=== PATIENT | female | born 1970 | race American Indian/Alaskan Native ===

== ENCOUNTER 2016-07-18 08:11 | Outpatient (CLI) | payer BC ==
--- NOTE | 2016-07-18 14:20 | Mammography Report ---
BILATERAL DIGITAL SCREENING MAMMOGRAM with CAD: 07/18/16 08:11:00 CLINICAL: Routine screening. COMPARISON:None available. FINDINGS: The breasts are almost entirely fatty. No mass, architectural distortion or suspicious calcifications. IMPRESSION: No mammographic evidence of malignancy. BI-RADS CATEGORY: 1 - - Negative RECOMMENDATION: Routine mammographic screening in one year. COMMENT: Patient follow-up letters are generated by our [employer] application.
== END 2016-07-18 08:12 | disposition home or self-care (01) ==
LOC: MAMMO 08:11
PROVIDERS: ATTEND Internal Medicine
DX: Z12.31 Encounter for screening mammogram for malignant neoplasm of breast (principal)
CPT/HCPCS: 77067; G0202

== ENCOUNTER 2017-12-10 01:39 | Emergency (ER) | payer BC ==
[2017-12-10 05:27] LABS: Basophils # (Auto) 0.1 K/mm3 (0.0-0.1); Basophils % (Auto) 0.7 % (0.0-1.8); Hematocrit 41.9 % (30.3-42.9); Hemoglobin 14.5 gm/dl (10.1-14.3); Lymphocytes # (Auto) 3.4 K/mm3 (1.2-5.4); Lymphocytes % (Auto) 22.1 % (13.4-35.0); Mean Corpuscular HGB Conc 35 % (30-34); Mean Corpuscular Hemoglobin 32 pg (28-32); Mean Corpuscular Volume 91 fl (79-97); Monocytes # (Auto) 1.1 K/mm3 (0.0-0.8); Monocytes % (Auto) 7.4 % (0.0-7.3); Platelet Count 226 K/mm3 (140-440); Red Cell Distribution Width 12.5 % (13.2-15.2)
[2017-12-10 05:40] LABS: BUN/Creatinine Ratio 13; Blood Urea Nitrogen 9 mg/dL (7-17); Calcium 9.5 mg/dL (8.4-10.2); Hemolysis Index 0
[2017-12-10 06:15] LABS: Bacteria,Urine 2+ /HPF (Negative); Bilirubin,Urine NEG (Negative); Blood,Urine LG (Negative); Color,Urine Yellow (Yellow); Mucus,Urine FEW /HPF; Urobilinogen,Urine < 2.0 mg/dL (<2.0)
[2017-12-10] MEDS ORDERED: TYLENOL PO ONE (11:06)
[2017-12-10] MEDS ORDERED: NACL 0.9% 1000 ML 1,000 ML IV ONE (11:06)
[2017-12-10] MEDS ORDERED: LEVAQUIN 750MG/150ML 750 MG/150 ML BAG IV ONE (11:07)
[2017-12-10] MEDS ORDERED: ZOFRAN IV ONE (11:07)
--- NOTE | 2017-12-10 11:13 | Emergency Department Report ---
ED General Adult HPI - General Chief complaint: Fever Stated complaint: FEVER/N/V/CHILLS Time Seen by Provider: 12/10/17 10:56 Source: patient Mode of arrival: Ambulatory Limitations: No Limitations - History of Present Illness Initial comments: 47-year-old diabetic woman presents with 2 day history of nausea and vomiting, without diarrhea, and one day history of feverishness and left lower quadrant discomfort with dysuria and frequency. Vomiting is intermittent, mostly when she tries to eat foods, or large amounts of liquids, but is able to take down small sips at a time, but it takes her a couple of hours to keep down an 8 ounce glass of water. She feels dehydrated and dry, somewhat weak and tense in the muscles, but no outright pain, no fainting, and no lightheadedness. She has not had any diarrhea, and vomitus is mostly clear, but she has not had any solid intake for 2 days. Not taken any medicine for this, and reports only chronic lower back pain and diabetic neuropathic pain, both moderate, intensity , typical for her, with aching in the lower extremities for neuropathy, and aching in the lower back area from spinal stenosis, with discomfort in 4-5 out of 10, without radiation, and aggravated by movement. There are no other secondary symptoms. Past medical history is significant for insulin-dependent diabetes mellitus, secondary diabetic neuropathy, morbid obesity, spinal stenosis, hypertension, asthma, which is well-controlled, with as needed nebulizers, which she has not had use recently, which does use budesonide inhalers. No recent steroid use. Severity scale (0 -10): 0 - Related Data Previous Rx's Medication Instructions Recorded Last Taken Type Levofloxacin [Levaquin TAB] 500 mg PO QDAY #9 tablet 12/10/17 Unknown Rx Ondansetron [Zofran ODT TAB] 8 mg PO Q8HR #10 tab.rapdis 12/10/17 Unknown Rx Allergies Allergy/AdvReac Type Severity Reaction Status Date / Time No Known Allergies Allergy Unverified 07/18/16 08:12 ED Review of Systems ROS: Stated complaint: FEVER/N/V/CHILLS Other details as noted in HPI Comment: All other systems reviewed and negative Constitutional: diaphoresis, fever, weakness ENT: denies: throat pain Respiratory: denies: cough, shortness of breath, SOB with exertion, wheezing Cardiovascular: denies: chest pain, palpitations, edema Endocrine: denies: excessive sweating, flushing, intolerance to cold, intolerance to heat, increased hunger, increased urine (decreased, thinks secondary to dehydration) Gastrointestinal: nausea, vomiting (intermittent, but persistent). denies: abdominal pain (left lower quadrant, mild to moderate, 4-5 out of 10), diarrhea , hematemesis, melena Genitourinary: urgency, dysuria, frequency. denies: discharge Musculoskeletal: back pain (chronic, no change) Skin: denies: rash Neurological: weakness (mild, generalized), paresthesias (neuropathy, chronic). denies: headache, numbness Psychiatric: as per HPI Hematological/Lymphatic: denies: easy bleeding, easy bruising ED Past Medical Hx - Past Medical History Hx Hypertension: Yes Hx Diabetes: Yes (insulin-dependent) Hx Arthritis: Yes Hx Asthma: Yes Additional medical history: Morbid Obesity, Neuropathy - Surgical History Past Surgical History?: Yes Additional Surgical History: Bilateral ankles, hips, shoulders, Neuropathy. BREAST REDUCTION, Hysterectomy, Tonsilectomy - Social History Smoking Status: Never Smoker Substance Use Type: None - Medications Home Medications: Home Medications Medication Instructions Recorded Confirmed Last Taken Type Levofloxacin [Levaquin TAB] 500 mg PO QDAY #9 tablet 12/10/17 Unknown Rx Ondansetron [Zofran ODT TAB] 8 mg PO Q8HR #10 tab.rapdis 12/10/17 Unknown Rx ED Physical Exam - General Limitations: No Limitations General appearance: alert, in no apparent distress, obese - Head Head exam: Present: atraumatic, normocephalic - Eye Eye exam: Present: PERRL - ENT ENT exam: Present: mucous membranes dry - Neck Neck exam: Present: normal inspection, full ROM. Absent: tenderness - Respiratory Respiratory exam: Present: normal lung sounds bilaterally. Absent: respiratory distress, wheezes, rales, rhonchi - Cardiovascular Cardiovascular Exam: Present: tachycardia, normal heart sounds. Absent: systolic murmur, diastolic murmur, S3, S4 - GI/Abdominal GI/Abdominal exam: Present: tenderness (minimal tenderness to palpation left lower quadrant, no rebound), normal bowel sounds, other (morbidly obese). Absent: distended, guarding, rebound - Rectal Rectal exam: Present: deferred - Extremities Exam Extremities exam: Present: normal inspection, full ROM, normal capillary refill. Absent: calf tenderness - Back Exam Back exam: Present: normal inspection, paraspinal tenderness (lumbosacral area, bilateral, myofascial, chronic). Absent: CVA tenderness (R), CVA tenderness (L) - Neurological Exam Neurological exam: Present: alert, oriented X3, CN II-XII intact. Absent: motor sensory deficit - Psychiatric Psychiatric exam: Present: normal affect - Skin Skin exam: Present: warm, dry. Absent: rash, petechiae, pallor, ecchymosis ED Course Vital Signs 12/10/17 12/10/17 12/10/17 03:07 04:42 11:04 Temperature 37.8 C H 37.8 C H 37.4 C Pulse Rate 115 H 107 H 96 H Respiratory 18 18 16 Rate Blood Pressure 168/98 168/98 Blood Pressure 120/70 [Left] O2 Sat by Pulse 93 100 100 Oximetry - Reevaluation(s) Reevaluation #1: 12/10/17 13:57 Patient significantly improved after rehydration and medication with ondansetron , and after completion of 1 L of fluids, was given oral fluid challenge, and tolerated water well, with no recurrence of nausea. Vital signs are stable on recheck, blood pressure 126/64, heart rate 90. 12/10/17 13:59 ED Medical Decision Making - Lab Data Result diagrams: 12/10/17 05:00 12/10/17 05:00 - Medical Decision Making Patient has significant findings of urinary tract infection, with elevated white count, pyuria and bacteriuria, and left lower quadrant discomfort, but shows systemic symptoms suggestive of pyelonephritis, but stable glucose of 247 , and no signs of SIRS, other than fever, and I believe her resting tachycardia is probably fairly typical for her, given her sedentary status and morbid obesity. Nonetheless, lactic acid checked, borderline elevated and stable on repeat, about upper limits of normal 2.0, patient will be treated for pyelonephritis, rehydrated and given that she has not had solid food, and is likely candidate for outpatient treatment, with renal treatment for pyelonephritis and antiemetics. She has stable medical follow-up, and should be seen within 3 days for recheck. - Differential Diagnosis urinary tract infection, pyelonephritis, sepsis Critical Care Time: No Critical care attestation.: If time is entered above; I have spent that time in minutes in the direct care of this critically ill patient, excluding procedure time. 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 Diabetes mellitus complication status: without complication Qualified Code(s): E11.9 - Type 2 diabetes mellitus without complications; Z79.4 - care home (current) use of insulin Disposition: DC- TO HOME OR SELFCARE Is pt being admited?: No Does the pt Need Aspirin: No Condition: Stable Instructions: Acute Pyelonephritis (ED), Acute Nausea and Vomiting (ED) Additional Instructions: Oral intake should be primarily fluids, such as soups or broths or Pedialyte for the next 10-12 hours, but she may also have soft foods, such as Jell-O, oatmeal, protein drinks, or moderate amounts of plain water also. You should drink enough to be sure that you're urinating as much as she normally do, in order to be sure you not getting dehydrated. Take Levaquin daily for the next 7 days to treat urinary tract infection, and next dose is due tomorrow Take ondansetron up to every 8 hours as needed if you have any residual nausea. You do not need to take this medicine if is not having any nausea. Check her temperature regularly, and take Tylenol, 650 mg every 4 hours as needed if you're continuing to run a temperature. Have recheck by your doctor in 2 or 3 days to see how you're improving. Return to the emergency department for further care or evaluation if he have any new symptoms or getting worse in any way. Prescriptions: Levofloxacin [Levaquin TAB] 500 mg PO QDAY #9 tablet Ondansetron [Zofran ODT TAB] 8 mg PO Q8HR #10 tab.rapdis Referrals: HENRI CASTILLO MD [Primary Care Provider] - 3-5 Days Time of Disposition: 14:03
[2017-12-10 14:03] VITALS: BP 112/87
== END 2017-12-10 14:18 | disposition home or self-care (01) ==
LOC: ED 01:39
DX: N10 Acute pyelonephritis (principal); E86.0 Dehydration; I10 Essential (primary) hypertension; M19.90 Unspecified osteoarthritis, unspecified site; J45.909 Unspecified asthma, uncomplicated; E11.40 Type 2 diabetes mellitus with diabetic neuropathy, unspecified; E66.01 Morbid (severe) obesity due to excess calories; Z79.4 Long term (current) use of insulin; Z68.42 Body mass index [BMI] 45.0-49.9, adult; Z90.710 Acquired absence of both cervix and uterus; Z90.89 Acquired absence of other organs
CPT/HCPCS: 36415; 80048; 81001; 82140; 82805; 82962; 83735; 85025; 96361; 96365; 96375; 99284; J1956; J2405; J7030